=== PATIENT | male | born 1960 | race African-American/Black ===

== ENCOUNTER 2017-09-03 08:00 | Inpatient (IN) | payer MEDICAID, OTHER ==
[~2017-09-03] VITALS: Ht 167.6 cm; Wt 72.7 kg
[~2017-09-03 08:00] MED LIST: ATEN-187 PO; INSU100V3 IJ; METF500T6 PO
[2017-09-03] MEDS ORDERED: ATOR20TA86 PO (08:06)
[2017-09-03] MEDS ORDERED: LISI-661 PO (08:06)
[2017-09-03] MEDS ORDERED: ESCI10TA PO (08:06)
[2017-09-03 08:13] LABS: GLUCOSE,POINT OF CARE 317 MG/DL (70-110)
[2017-09-03] MEDS ORDERED: SODIUM CHLORIDE 0.9% 1,000 ML IV ONE (09:00)
[2017-09-03 09:39] LABS: BASOPHILS % (AUTO) 0.7 % (0.0-2.0); EOSINOPHILS % (AUTO) 2.3 % (1.0-6.0); HEMATOCRIT 40.8 % (41-53); LYMPHOCYTES # (AUTO) 1.7 K/uL (1.0-4.8); LYMPHOCYTES % (AUTO) 21.4 % (22.0-44.0); MEAN CORPUSCULAR HEMOGLOBIN 29.4 pg (26.0-34.0); MEAN CORPUSCULAR HGB CONC 34.3 G/dL (31.0-37.0); MEAN CORPUSCULAR VOLUME 86 fL (80-100); MONOCYTES # (AUTO) 0.4 K/uL (0.1-1.0); NEUTROPHILS # (AUTO) 5.6 K/uL (1.8-7.7); NEUTROPHILS % (AUTO) 70.6 % (40.0-70.0); PLATELET COUNT (AUTO) 300 K/uL (150-450); RED BLOOD CELL COUNT(AUTO) 4.76 MIL/uL (4.50-5.90); RED CELL DISTRIBUTION WIDTH 15.1 % (11.5-14.5)
[2017-09-03 09:45] LABS: ANION GAP 6 mmol/L (8-16); CALCIUM, TOTAL 8.9 mg/dL (8.8-10.5); CARBON DIOXIDE 29 mmol/L (22-29); CHLORIDE 99 mmol/L (98-107); CREATININE 0.96 mg/dL (0.60-1.30); GLOMERULAR FILTR. RATE CALC > 60 mL/min (>60); GLUCOSE,RANDOM 342 mg/dL (70-110); POTASSIUM 3.9 mmol/L (3.5-5.1); SODIUM SERUM 134 mmol/L (136-145); UREA NITROGEN, BLOOD 13 mg/dL (7-18)
[2017-09-03 09:51] LABS: ALANINE AMINOTRANSFERASE 36 U/L (12-78); ALBUMIN 3.4 g/dL (3.4-5.0); ALKALINE PHOSPHATASE 93 U/L (46-116); ASPARTATE AMINOTRANSFERASE 17 U/L (15-37); BILIRUBIN,TOTAL 1.3 mg/dL (0.1-1.0); TOTAL PROTEIN, SERUM 6.9 g/dL (6.4-8.2)
[2017-09-03 09:56] LABS: ACETONE,BLOOD NEGATIVE (NEGATIVE)
[2017-09-03 09:58] LABS: HEMOGLOBIN A1C 11.3 % (4.5-6.2)
[2017-09-03 11:27] LABS: GLUCOSE,POINT OF CARE 256 MG/DL (70-110)
[2017-09-03] MEDS ORDERED: OxyCODONE HCL/ACETAMINOPHEN 5-325 MG TABLET PO PRN (11:30)
[2017-09-03] MEDS ORDERED: DEXTROSE 50%-WATER 25 GM/50 ML SYRINGE IVP PRN (11:30)
[2017-09-03] MEDS: ASPIRIN 81 MG CHEWABLE TABLET PO SCH (11:30)
[2017-09-03] MEDS ORDERED: MAGNESIUM HYDROXIDE SUSPENSION 30 ML UDCUP PO PRN (11:30)
[2017-09-03 12:00] VITALS: BP 164/104
[2017-09-03] MEDS ORDERED: CloNIDine HCL 0.1 MG TABLET PO PRN (12:00)
[2017-09-03] MEDS: ATORVASTATIN CALCIUM 20 MG TABLET PO SCH (12:18)
[2017-09-03] MEDS: LISINOPRIL 10 MG TABLET PO SCH (12:18)
[2017-09-03] MEDS: INSULIN GLARGINE,HUM.REC.ANLOG 100 UNITS/ML SQ SCH (12:20)
[2017-09-03] MEDS: INSULIN LISPRO 100 UNITS/ML SQ PRN ×3 (12:21→20:44)
[2017-09-03 14:39] VITALS: BP 156/96
[2017-09-03] MEDS: ACETAMINOPHEN 325 MG TABLET PO PRN ×2 (16:01→20:44)
[2017-09-03] MEDS: HEPARIN SODIUM,PORCINE 5,000 UNITS/ML VIAL SQ SCH ×2 (16:01→23:30)
[2017-09-03 16:23] VITALS: BP 147/94
[2017-09-03 19:17] VITALS: BP 156/94
[2017-09-03 20:00] LABS: AMPHET/METH SCREEN,URINE NEGATIVE (NEGATIVE); BARBITURATE SCREEN, URINE NEGATIVE (NEGATIVE); BENZODIAZEPINES SCREEN,URINE NEGATIVE (NEGATIVE); CANNABINOID SCREEN,URINE POSITIVE (NEGATIVE); COCAINE SCREEN,URINE NEGATIVE (NEGATIVE); METHADONE SCREEN, URINE NEGATIVE (NEGATIVE); OPIATE SCREEN,URINE NEGATIVE (NEGATIVE)
[2017-09-03 20:32] LABS: PHENCYCLIDINE SCREEN,URINE NEGATIVE (NEGATIVE)
[2017-09-03] MEDS: DOCUSATE SODIUM 100 MG CAPSULE PO SCH (20:42)
[2017-09-03 23:59] VITALS: BP 130/64
[2017-09-04 04:13] VITALS: BP 132/81
[2017-09-04] MEDS: INSULIN LISPRO 100 UNITS/ML SQ PRN ×4 (06:00→20:12)
[2017-09-04 07:27] VITALS: BP 137/90
[2017-09-04 07:27] LABS: GLUCOMETER DEV NAME(LOC) 5N 2S; GLUCOSE,POINT OF CARE 170 MG/DL (70-110)
[2017-09-04 07:28] LABS: GLUCOMETER DEV NAME(LOC) 5N 2S; GLUCOSE,POINT OF CARE 187 MG/DL (70-110)
[2017-09-04 07:28] LABS: GLUCOMETER DEV NAME(LOC) 5N 2S; GLUCOSE,POINT OF CARE 152 MG/DL (70-110)
[2017-09-04] MEDS: ASPIRIN 81 MG CHEWABLE TABLET PO SCH (07:56)
[2017-09-04] MEDS: PANTOPRAZOLE SODIUM 40 MG DR TABLET PO SCH (07:56)
[2017-09-04] MEDS: LISINOPRIL 10 MG TABLET PO SCH (07:56)
[2017-09-04] MEDS: DOCUSATE SODIUM 100 MG CAPSULE PO SCH ×2 (07:56→20:10)
[2017-09-04] MEDS: ATORVASTATIN CALCIUM 20 MG TABLET PO SCH (07:56)
[2017-09-04] MEDS: INSULIN GLARGINE,HUM.REC.ANLOG 100 UNITS/ML SQ SCH (08:03)
[2017-09-04] MEDS: HEPARIN SODIUM,PORCINE 5,000 UNITS/ML VIAL SQ SCH ×2 (08:04→15:47)
[2017-09-04 10:03] LABS: CHOL/HDL RATIO 3.3 (4.2-7.3); THYROID STIMULATING HORMONE 0.93 uIU/mL (0.36-3.74)
[2017-09-04 11:41] VITALS: BP 144/96
[2017-09-04 11:50] LABS: FOLATE SERUM 18.7 ng/mL (5.4-)
[2017-09-04] MEDS: ACETAMINOPHEN 325 MG TABLET PO PRN (15:47)
[2017-09-04 16:00] VITALS: BP 153/92
[2017-09-04 16:58] LABS: GLUCOMETER DEV NAME(LOC) 5N 1P; GLUCOSE,POINT OF CARE 195 MG/DL (70-110)
[2017-09-04 17:07] LABS: GLUCOMETER DEV NAME(LOC) 5N 2S; GLUCOSE,POINT OF CARE 149 MG/DL (70-110)
[2017-09-04 19:23] VITALS: BP 134/92
[2017-09-05 00:02] VITALS: BP 138/82
[2017-09-05] MEDS: HEPARIN SODIUM,PORCINE 5,000 UNITS/ML VIAL SQ SCH ×4 (00:18→23:15)
[2017-09-05 04:33] VITALS: BP 125/92
[2017-09-05] MEDS: INSULIN LISPRO 100 UNITS/ML SQ PRN ×4 (05:56→19:58)
[2017-09-05 08:01] VITALS: BP 122/83
[2017-09-05] MEDS: ASPIRIN 81 MG CHEWABLE TABLET PO SCH (08:09)
[2017-09-05] MEDS: PANTOPRAZOLE SODIUM 40 MG DR TABLET PO SCH (08:09)
[2017-09-05] MEDS: CLOPIDOGREL BISULFATE 75 MG TABLET PO SCH (08:09)
[2017-09-05] MEDS: ATORVASTATIN CALCIUM 20 MG TABLET PO SCH (08:10)
[2017-09-05] MEDS: DOCUSATE SODIUM 100 MG CAPSULE PO SCH ×2 (08:10→19:48)
[2017-09-05] MEDS: LISINOPRIL 10 MG TABLET PO SCH (08:10)
[2017-09-05] MEDS: INSULIN GLARGINE,HUM.REC.ANLOG 100 UNITS/ML SQ SCH (08:43)
[2017-09-05 12:00] VITALS: BP 133/90
[2017-09-05 15:53] VITALS: BP 118/89
[2017-09-05 23:28] VITALS: BP 130/83
[2017-09-06 05:35] VITALS: BP 125/85
[2017-09-06] MEDS: INSULIN LISPRO 100 UNITS/ML SQ PRN ×2 (05:40→12:34)
[2017-09-06 06:54] LABS: BASOPHILS % (AUTO) 0.4 % (0.0-2.0); EOSINOPHILS % (AUTO) 1.6 % (1.0-6.0); HEMATOCRIT 39.9 % (41-53); HEMOGLOBIN 13.5 g/dL (13.5-17.5); LYMPHOCYTES # (AUTO) 1.8 K/uL (1.0-4.8); LYMPHOCYTES % (AUTO) 26.6 % (22.0-44.0); MEAN CORPUSCULAR HEMOGLOBIN 29.2 pg (26.0-34.0); MEAN CORPUSCULAR HGB CONC 33.7 G/dL (31.0-37.0); MEAN CORPUSCULAR VOLUME 87 fL (80-100); MONOCYTES # (AUTO) 0.4 K/uL (0.1-1.0); MONOCYTES % (AUTO) 6.4 % (2.0-9.0); NEUTROPHILS # (AUTO) 4.5 K/uL (1.8-7.7); PLATELET COUNT (AUTO) 301 K/uL (150-450); RED BLOOD CELL COUNT(AUTO) 4.61 MIL/uL (4.50-5.90); RED CELL DISTRIBUTION WIDTH 14.8 % (11.5-14.5)
[2017-09-06 07:17] LABS: ANION GAP 9 mmol/L (8-16); CALCIUM, TOTAL 8.6 mg/dL (8.8-10.5); CARBON DIOXIDE 26 mmol/L (22-29); CHLORIDE 103 mmol/L (98-107); GLOMERULAR FILTR. RATE CALC > 60 mL/min (>60); GLUCOSE,RANDOM 202 mg/dL (70-110); POTASSIUM 3.7 mmol/L (3.5-5.1); SODIUM SERUM 138 mmol/L (136-145); UREA NITROGEN, BLOOD 16 mg/dL (7-18)
[2017-09-06 07:28] VITALS: BP 154/93
[2017-09-06] MEDS: LISINOPRIL 10 MG TABLET PO SCH (08:12)
[2017-09-06] MEDS: PANTOPRAZOLE SODIUM 40 MG DR TABLET PO SCH (08:12)
[2017-09-06] MEDS: ASPIRIN 81 MG CHEWABLE TABLET PO SCH (08:12)
[2017-09-06] MEDS: ATORVASTATIN CALCIUM 20 MG TABLET PO SCH (08:12)
[2017-09-06] MEDS: DOCUSATE SODIUM 100 MG CAPSULE PO SCH (08:12)
[2017-09-06] MEDS: CLOPIDOGREL BISULFATE 75 MG TABLET PO SCH (08:12)
[2017-09-06] MEDS: HEPARIN SODIUM,PORCINE 5,000 UNITS/ML VIAL SQ SCH ×2 (08:12→16:26)
[2017-09-06] MEDS: INSULIN GLARGINE,HUM.REC.ANLOG 100 UNITS/ML SQ SCH (08:20)
[2017-09-06 11:22] VITALS: BP 161/95
[2017-09-06 15:17] VITALS: BP 126/74
[2017-09-06 15:43] LABS: GLUCOMETER DEV NAME(LOC) 5N 1P; GLUCOSE,POINT OF CARE 285 MG/DL (70-110)
[2017-09-06 15:43] LABS: GLUCOMETER DEV NAME(LOC) 5N 1P; GLUCOSE,POINT OF CARE 212 MG/DL (70-110)
[2017-09-06] MEDS ORDERED: CLOP75 PO (16:33)
[2017-09-06] MEDS ORDERED: ASPI81TA39 PO (16:33)
[2017-09-06] MEDS ORDERED: INSLAN SQ (16:34)
[2017-09-06 17:13] LABS: GLUCOMETER DEV NAME(LOC) 5N 2S; GLUCOSE,POINT OF CARE 287 MG/DL (70-110)
[2017-09-06 17:13] LABS: GLUCOMETER DEV NAME(LOC) 5N 2S; GLUCOSE,POINT OF CARE 219 MG/DL (70-110)
[2017-09-06 17:13] LABS: GLUCOMETER DEV NAME(LOC) 5N 2S; GLUCOSE,POINT OF CARE 252 MG/DL (70-110)
[2017-09-06 17:13] LABS: GLUCOMETER DEV NAME(LOC) 5N 2S; GLUCOSE,POINT OF CARE 253 MG/DL (70-110)
[2017-09-06 17:13] LABS: GLUCOMETER DEV NAME(LOC) 5N 2S; GLUCOSE,POINT OF CARE 234 MG/DL (70-110)
[2017-09-06 17:13] LABS: GLUCOMETER DEV NAME(LOC) 5N 2S; GLUCOSE,POINT OF CARE 196 MG/DL (70-110)
== END 2017-09-06 18:23 | disposition home or self-care (01) | DRG 45 ==
LOC: EMS 08:02 → 5N 11:08
PROVIDERS: ADMIT Internal Medicine; ATTEND Internal Medicine
DX: I63.9 Cerebral infarction, unspecified (principal); E11.65 Type 2 diabetes mellitus with hyperglycemia; I10 Essential (primary) hypertension; F32.9 Major depressive disorder, single episode, unspecified; E78.5 Hyperlipidemia, unspecified; E78.00 Pure hypercholesterolemia, unspecified; Z79.82 Long term (current) use of aspirin; Z79.4 Long term (current) use of insulin; Z88.0 Allergy status to penicillin; Z86.73 Personal history of transient ischemic attack (TIA), and cerebral infarction without residual deficits; Z83.3 Family history of diabetes mellitus; Z82.49 Family history of ischemic heart disease and other diseases of the circulatory system
CPT/HCPCS: 70450; 70544; 70551; 80307; 82607; 82746; 83036; 84443; 93005; 93306; 93880; 97112; 97116; 97163; 97166; 97530; 97535; 99285; J1644; J1815; J7030